=== PATIENT | female | born 1980 | race Two or more races ===

== ENCOUNTER 2022-07-22 16:40 | Emergency (ER) | payer OTHER, SELFPAY ==
[2022-07-22 16:46] VITALS: BP 180/95; PULSE 88; RESP 18; TEMP 36.6; O2SAT 98; BMI 40.7
[2022-07-22 17:38] LABS: Bilirubin Urine NEGATIVE (NEGATIVE); Blood Urine LARGE (NEGATIVE); Clarity Urine CLEAR (CLEAR); Color Urine LT. YELLOW (YELLOW); Glucose Urine UA NEGATIVE (NEGATIVE); Ketones Urine NEGATIVE (NEGATIVE); Leukocyte Esterase Urine NEGATIVE (NEGATIVE); Nitrite Urine NEGATIVE (NEGATIVE); Protein Urine NEGATIVE (NEG/TRACE); Urobilinogen Urine 0.2 EU/dL (0.2-1.0)
[2022-07-22 17:41] LABS: Urine Microscopic Indicated YES
--- NOTE | 2022-07-22 17:45 | ED_ITS ---
Documented by User: Simon Steven MD 07/22/22 18:18 HPI - Female Genitourinary General Chief complaint: Urogenital-Female Stated complaint: flank pain lump Time Seen by Provider: 07/22/22 17:39 Source: patient Mode of arrival: walk-in Limitations: no limitations History of Present Illness HPI Narrative: This document has been composed with a new electronic medical record and [employer] voice recognition system. This document may not fully inaccurately reflect the entirety of the patient encounter. Patient's here with two complaints one is she has a lump on the front of her th roat and 2nd she has right sided flank pain and some urinary discomfort. She has not had fever shakes or chills. She's not seen actual blood in it. She denies any previous history of kidney stones. The pain is in her flank that radiates to the anterior right side of the abdomen. She noticed this sore area in the front of her throat several days ago she says started out like a pimple. She tried to pick at it and drain it and just some clear fluid came out. She has not had MRSA infections previously. She's not on any antibiotics. She has no difficulty swallowing speaking or chewing. No difficulty breathing or airway symptomatology at all. Related Data Home Medications Medication Instructions Recorded Confirmed amlodipine 5 mg tablet 5 mg PO DAILY 07/22/22 07/22/22 Allergies Allergy/AdvReac Type Severity Reaction Status Date / Time No Known Drug Allergies Allergy Verified 07/22/22 16:50 Exam Narrative Exam Narrative: pleasant awake alert vital signs are stable no airway compromise her instability on vital signs Constitutional Vital Signs - 24 hr 07/22/22 16:46 07/22/22 18:20 Temperature 98 F Pulse Rate 84 Pulse Rate [Monitor] 88 Respiratory Rate 18 22 Blood Pressure 140/88 H Blood Pressure [Left Arm] 180/95 H Pulse Oximetry 98 97 Oxygen Delivery Method Room Air [facility] Common normals: normocephalic and head/scalp atraumatic Other: tthe oral cavity and dentition do not show any acute process. Sunrises in the midline. There is no swelling the floor the mouth. There is no submandibular or anterior cervical adenitis. Cricothyroid membrane and above the suprasternal notch there is a tender erythematous firm freely movable mass consistent with abscess formation. It's away from the carotid and jugular vein and arterial structures of the neck. It strictly in the midline well below the salivary glands and submandibular area. Back & Pelvis Common normals: no CVA tenderness and thoracic and lumbar spine normal to inspection General back: no CVA tenderness Extremity Common normals: normal to inspection Course Vital Signs Vital signs: Vital Signs Temperature 98 F 07/22/22 16:46 Pulse Rate 88 07/22/22 16:46 Respiratory Rate 18 07/22/22 16:46 Blood Pressure 180/95 H 07/22/22 16:46 Pulse Oximetry 98 07/22/22 16:46 Oxygen Delivery Method Room Air 07/22/22 16:46 Temperature 98 F 07/22/22 16:46 Pulse Rate 84 07/22/22 18:20 Respiratory Rate 22 07/22/22 18:20 Blood Pressure 140/88 H 07/22/22 18:20 Pulse Oximetry 97 07/22/22 18:20 Oxygen Delivery Method Room Air 07/22/22 16:46 MDM - Female Genitourinary Lab Data Labs: Lab Results 07/22/22 07/22/22 Range/Units 16:50 17:41 Urine Color Lt. yellow (YELLOW) Urine Clarity Clear (CLEAR) Urine pH 7.0 (5.0-9.0) Ur Specific [place] 1.010 (1.005-1.025) Urine Protein Negative (NEG/TRACE) mg/dL Urine Glucose (UA) Negative (NEGATIVE) mg/dL Urine Ketones Negative (NEGATIVE) mg/dL Urine Occult Blood Large A (NEGATIVE) Urine Nitrite Negative (NEGATIVE) Urine Bilirubin Negative (NEGATIVE) Urine Urobilinogen 0.2 (0.2-1.0) EU/dL Ur Leukocyte Esterase Negative (NEGATIVE) Urine RBC 20-50 A (0-2) #/HPF Urine WBC 0-2 A (NONE SEEN) #/HPF Ur Squamous Epith Cells None seen (NONE/RARE) #/LPF Urine Crystals None seen (None Seen) #/HPF Urine Bacteria Trace A (NONE SEEN) #/HPF Urine Casts None seen (NONE SEEN) #/LPF Urine Mucus None seen (NONE SEEN) Ur Culture Indicated? No Discharge Plan Discharge Chief Complaint: Urogenital-Female Clinical Impression: Acute flank pain, Abscess of neck, Ovarian cyst Patient Disposition: Home, Self-Care Time of Disposition Decision: 20:26 Condition: Fair Prescriptions / Home Meds: No Action amlodipine 5 mg tablet 5 mg PO DAILY Instructions: Ovarian Cyst (ED), Diverticulosis (ED), Kidney Stones (ED), Non- Alcoholic Fatty Liver Disease (ED), Abscess (ED) Additional Instructions: Use warm compresses per father 10 minutes as needed with warm washcloth or heating pack, do not bring herself. Education given on kidney stone, diverticulosis, ovarian cyst, and fatty liver disease. Follow up with PCP, antibiotics have been prescribed Stand Alone Forms: Portal Instructions Referrals: Justyna Durham [Primary Care Provider] - 1 week Procedures ED ID Incision & Drainage I&D Type: abcess Site: neck Sedation/analgesia: none Anesthetic used: lidocaine 1% Technique: needle aspiration and incised with #11 blade Amount of fluid (mL): 2 Packing used: none Documented by User: Brayan Gandhi MD 07/22/22 20:37 HPI - Female Genitourinary General Chief complaint: Urogenital-Female Stated complaint: flank pain lump Time Seen by Provider: 07/22/22 17:39 Related Data Home Medications Medication Instructions Recorded Confirmed amlodipine 5 mg tablet 5 mg PO DAILY 07/22/22 07/22/22 Allergies Allergy/AdvReac Type Severity Reaction Status Date / Time No Known Drug Allergies Allergy Verified 07/22/22 16:50 Exam Constitutional Vital Signs - 24 hr 07/22/22 16:46 07/22/22 18:20 Temperature 98 F Pulse Rate 84 Pulse Rate [Monitor] 88 Respiratory Rate 18 22 Blood Pressure 140/88 H Blood Pressure [Left Arm] 180/95 H Pulse Oximetry 98 97 Oxygen Delivery Method Room Air Course Vital Signs Vital signs: Vital Signs Temperature 98 F 07/22/22 16:46 Pulse Rate 88 07/22/22 16:46 Respiratory Rate 18 07/22/22 16:46 Blood Pressure 180/95 H 07/22/22 16:46 Pulse Oximetry 98 07/22/22 16:46 Oxygen Delivery Method Room Air 07/22/22 16:46 Temperature 98 F 07/22/22 16:46 Pulse Rate 84 07/22/22 18:20 Respiratory Rate 22 07/22/22 18:20 Blood Pressure 140/88 H 07/22/22 18:20 Pulse Oximetry 97 07/22/22 18:20 Oxygen Delivery Method Room Air 07/22/22 16:46 MDM - Female Genitourinary MDM Narrative Medical decision making narrative: Dr. Gandhi note. Patient was initially seen by Dr. Montejo. Patient had a CT of the abdomen and pelvis that was pending. CT shows no acute findings, does show ovarian cysts the patient is aware of, especially the larger 6.9 cm cyst on the right. Showed diverticulosis, left kidney stone in the left kidney, and also fatty liver disease. All these things were discussed at discharge. Patient discussion of her abscess in the front of her neck as well, she'll follow up with PCP. Patient was prescribed doxycycline by Dr. Montejo. Patient use warm compresses, Tylenol Motrin as needed for pain. Patient will follow-up with PCP. Education was done on fatty liver kidney disease, kidney stones, diverticulosis and diverticulitis with patient and fianc? at bedside. No questions at discharge. Medical Records Attestation: I reviewed the patient's medical records. Lab Data Attestation: I reviewed the patient's lab results. Labs: Lab Results 07/22/22 07/22/22 Range/Units 16:50 17:41 Urine Color Lt. yellow (YELLOW) Urine Clarity Clear (CLEAR) Urine pH 7.0 (5.0-9.0) Ur Specific [place] 1.010 (1.005-1.025) Urine Protein Negative (NEG/TRACE) mg/dL Urine Glucose (UA) Negative (NEGATIVE) mg/dL Urine Ketones Negative (NEGATIVE) mg/dL Urine Occult Blood Large A (NEGATIVE) Urine Nitrite Negative (NEGATIVE) Urine Bilirubin Negative (NEGATIVE) Urine Urobilinogen 0.2 (0.2-1.0) EU/dL Ur Leukocyte Esterase Negative (NEGATIVE) Urine RBC 20-50 A (0-2) #/HPF Urine WBC 0-2 A (NONE SEEN) #/HPF Ur Squamous Epith Cells None seen (NONE/RARE) #/LPF Urine Crystals None seen (None Seen) #/HPF Urine Bacteria Trace A (NONE SEEN) #/HPF Urine Casts None seen (NONE SEEN) #/LPF Urine Mucus None seen (NONE SEEN) Ur Culture Indicated? No Smoking Cessation Additional Comments: [email or web address]?file=#[email or web address] [email or web address]?file=#[email or web address] Find: Highlight all Match case Current View [email or web address]?file=#[email or web address]&zoom=auto,-13,619 Page: of 2 Current View [email or web address]?file=#[email or web address]&zoom =auto,-13,619 [place] [address] Patient Name: TORY BIGGS MRN: [id number] date: 1980 Sex: F Assigned Patient Location: ER Current Patient Location: ER Accession/Order Number: [id number] Exam Date: 07/22/2022 18:40 Report Date: 07/22/2022 19:33 At the request of: SIMON STEVEN Procedure: CT abdomen pelvis wo con EXAMINATION: CT abdomen pelvis wo con, 07/22/2022 6:40 PM EDT HISTORY: kidney stone COMPARISON: None. TECHNIQUE: CT scan of the abdomen and pelvis was performed without IV contrast. CT dose reduction technique was used, including Automated Exposure Control. FINDINGS: LOWER CHEST: Subsegmental atelectasis in the right middle lobe and left lower lobe. LIVER: There is hepatomegaly and severe diffuse hepatic steatosis. GALLBLADDER AND BILIARY SYSTEM: Status post cholecystectomy. There is no intra or extrahepatic biliary ductal dilatation. SPLEEN: Unremarkable. PANCREAS: Unremarkable. ADRENAL GLANDS: Unremarkable. KIDNEYS AND URETERS: There is a 3 mm nonobstructing calculus in the lower pole the left kidney. No ureteral calculus or hydronephrosis. There is a 2.5 cm left renal cyst. BLADDER: Under distended. GASTROINTESTINAL TRACT: No evidence of bowel obstruction or colitis. There is left colonic and sigmoid diverticulosis without evidence of diverticulitis. A normal appendix is visualized. VASCULATURE: The abdominal aorta is normal in caliber. RETROPERITONEUM: No lymphadenopathy. PERITONEUM/MESENTERY: No abdominal ascites. No free air. PELVIS: There is a right ovarian cyst measuring 6.9 x 5.2 cm. Left ovarian cyst measuring 3.4 x 2.9 cm. No pelvic ascites or lymphadenopathy. BODY WALL: There is diastases of the rectus muscles with a small fat-containing umbilical hernia. BONES: No acute abnormality. IMPRESSION: 1. Nonobstructing 3 mm calculus in the lower pole the left kidney. No hydronephrosis. 2. Bilateral ovarian cysts measuring up to 6.9 cm in the right ovary. Follow-up pelvic ultrasound is recommended. 3. Hepatomegaly and diffuse hepatic steatosis. 4. Diverticulosis without evidence of diverticulitis. Electronically authenticated by: NELI HUNT Date: 07/22/2022 19:33 Discharge Plan Discharge Chief Complaint: Urogenital-Female Clinical Impression: Acute flank pain, Abscess of neck, Ovarian cyst Patient Disposition: Home, Self-Care Time of Disposition Decision: 20:26 Condition: Fair Prescriptions / Home Meds: No Action amlodipine 5 mg tablet 5 mg PO DAILY Instructions: Ovarian Cyst (ED), Diverticulosis (ED), Kidney Stones (ED), Non- Alcoholic Fatty Liver Disease (ED), Abscess (ED) Additional Instructions: Use warm compresses per father 10 minutes as needed with warm washcloth or heating pack, do not bring herself. Education given on kidney stone, diverticulosis, ovarian cyst, and fatty liver disease. Follow up with PCP, antibiotics have been prescribed Stand Alone Forms: Portal Instructions Referrals: Justyna Durham [Primary Care Provider] - 1 week
--- NOTE | 2022-07-22 17:49 | CT_ITS ---
[address] [address] Patient Name: TORY BIGGS MRN: [id number] date: 1980 Sex: F Assigned Patient Location: ER Current Patient Location: ER Accession/Order Number: [id number] Exam Date: 07/22/2022 18:40 Report Date: 07/22/2022 19:33 At the request of: REKHA BEASLEY Procedure: CT abdomen pelvis wo con EXAMINATION: CT abdomen pelvis wo con, 07/22/2022 6:40 PM EDT HISTORY: kidney stone COMPARISON: None. TECHNIQUE: CT scan of the abdomen and pelvis was performed without IV contrast. CT dose reduction technique was used, including Automated Exposure Control. FINDINGS: LOWER CHEST: Subsegmental atelectasis in the right middle lobe and left lower lobe. LIVER: There is hepatomegaly and severe diffuse hepatic steatosis. GALLBLADDER AND BILIARY SYSTEM: Status post cholecystectomy. There is no intra or extrahepatic biliary ductal dilatation. SPLEEN: Unremarkable. PANCREAS: Unremarkable. ADRENAL GLANDS: Unremarkable. KIDNEYS AND URETERS: There is a 3 mm nonobstructing calculus in the lower pole the left kidney. No ureteral calculus or hydronephrosis. There is a 2.5 cm left renal cyst. BLADDER: Under distended. GASTROINTESTINAL TRACT: No evidence of bowel obstruction or colitis. There is left colonic and sigmoid diverticulosis without evidence of diverticulitis. A normal appendix is visualized. VASCULATURE: The abdominal aorta is normal in caliber. RETROPERITONEUM: No lymphadenopathy. PERITONEUM/MESENTERY: No abdominal ascites. No free air. PELVIS: There is a right ovarian cyst measuring 6.9 x 5.2 cm. Left ovarian cyst measuring 3.4 x 2.9 cm. No pelvic ascites or lymphadenopathy. BODY WALL: There is diastases of the rectus muscles with a small fat-containing umbilical hernia. BONES: No acute abnormality. IMPRESSION: 1. Nonobstructing 3 mm calculus in the lower pole the left kidney. No hydronephrosis. 2. Bilateral ovarian cysts measuring up to 6.9 cm in the right ovary. Follow-up pelvic ultrasound is recommended. 3. Hepatomegaly and diffuse hepatic steatosis. 4. Diverticulosis without evidence of diverticulitis. Electronically authenticated by: NELI HUNT Date: 07/22/2022 19:33
[2022-07-22] MEDS: LIDOCAINE HCL 1%-EPINEPHRINE 1:100,000 20 ML MDV (18:04)
[2022-07-22 18:08] LABS: Bacteria Urine TRACE #/HPF (NONE SEEN); Cast Seen? NONE SEEN #/LPF (NONE SEEN); Crystals Seen? None Seen #/HPF (None Seen); Mucus Urine NONE SEEN (NONE SEEN); RBC Urine 20-50 #/HPF (0-2); Squamous Epithelial Cell Urine NONE SEEN #/LPF (NONE/RARE); Urine Culture Indicated NO; WBC Urine 0-2 #/HPF (NONE SEEN)
--- NOTE | 2022-07-22 18:14 | PC.NURSE ---
throat abscess drainage culture sample obtained and sent to lab following dr segundo collected while doing I +D. Alka Boudreaux RN
[2022-07-22 18:20] VITALS: BP 140/88; PULSE 84; RESP 22; O2SAT 97
[2022-07-22 20:42] VITALS: BP 132/88; PULSE 80; RESP 16; O2SAT 98
== END 2022-07-22 20:44 | disposition home or self-care (01) ==
PROVIDERS: Emergency Provider Emergency Medicine Emergency Medical Services; PCP Family Medicine
DX: R10.9 Unspecified abdominal pain (principal); L02.11 Cutaneous abscess of neck; N83.202 Unspecified ovarian cyst, left side; N83.201 Unspecified ovarian cyst, right side
CPT/HCPCS: 10060; 74176; 81003; 81015; 87070; 87205; 99284